=== PATIENT | male | born 1965 | race Caucasian/White ===

== ENCOUNTER 2017-04-01 06:12 | Observation (INO) ==
[2017-04-01 06:46] LABS: Basophils % 0.8 % (0.0-0.8); Eosinophils # 0.1 10*3/uL (0.0-0.87); Eosinophils % 2.7 % (0.00-10.9); Hematocrit 39.6 VOL% (42.0-52.0); Hemoglobin 13.9 GM/DL (14.0-18.0); Immature Granulocytes % 0.4 %; Immature Granulocytes Absolute 0.02 #; Lymphocytes # 2.5 10*3/uL (1.4-4.0); Lymphocytes % 47.3 % (21.2-54.2); Mean Corpuscular HGB Conc 35.1 GM/DL (32-36); Mean Corpuscular Hemoglobin 26 PG (27-34); Mean Corpuscular Volume 74.9 FL (87-102); Mean Platelet Volume 12.4 FL (9.6-12.0); Monocytes # 0.5 10*3/uL (0.11-0.8); Monocytes % 10.3 % (1.7-12.7); Neutrophils % 38.5 % (38.7-73.9); Platelet Count 184 T/CUMM (130-400); Red Blood Count 5.29 MC/CUMM (3.8-5.5); Red Cell Distribution Width 13.2 % (9.3-17.3); White Blood Count 5.2 T/CUMM (4-12)
[2017-04-01 07:12] LABS: Band Neutrophils 1 % (0-10); Eosinophils 2 % (0-10); Hypochromasia 1+; Lymphocytes 48 % (20-55); Segmented Neutrophils 37 % (50-85); Total Cells Counted 100
[2017-04-01 07:13] LABS: Microcytosis 1+
[2017-04-01 07:22] LABS: Alanine Aminotransferase 56 U/L (16-61); Alkaline Phosphatase 59 U/L (45-117); Apearance,Urine CLEAR (Clear); Aspartate Amino Transferase 29 U/L (0-37); Bilirubin,Urine Negative (Negative); Blood Urea Nitrogen 11 MG/DL (7-18); Blood, Urine Negative (Negative); Glucose 207 MG/DL (74-106); Glucose,Urine (UA) 50 mg/dL (Negative); Ketones,Urine Negative (Negative); Nitrite,Urine Negative (Negative); Potassium 3.3 MMOL/L (3.5-5.1); Protein,Urine 100 MG/DL; RBC,Urine 1 /HPF (0-4); Sodium 136 MMOL/L (136-145); Total Protein 7.8 G/DL (6.4-8.3); Troponin I Only < 0.015 NG/ML (0.00-0.045); Urine Color Straw (Yellow); Urine Urobilinogen < 2.0 EU/DL (0.2-1.0); WBC,Urine <1 /HPF (0-6)
--- NOTE | 2017-04-01 07:26 | Ultrasound Report ---
Exam: US abdomen limited Date:04/01/2017 6:33 AM Comparison: None Indication: Abdominal pain Findings: IMPORTANT MEASUREMENTS Liver Length: Liver is normal in size. 20.1 cm Focal fatty sparing also present Gallbladder Wall Thickness: Cholelithiasis is present with stones 3.1 mm CBD: 6 mm Pancreas: Visualized portion of pancreas is unremarkable. Right kidney: No hydronephrosis perinephric fluid collections or focal mass present.Length: 11.5 cm cm Width: 4.5 cm cm AP: 4.2 cm cm Impression: Cholelithiasis with a single stone and posterior sonographic Dodson sign without pericholecystic fluid The Ultrasound images were captured and stored. PROCEDURE INTERPRETED AT [facility] DEPARTMENT OF RADIOLOGY Final Report Signed by: Dr. Alexys Warren
[2017-04-01] MEDS ORDERED: ONDANSETRON 4 MG/2 ML VIAL ONE (07:53)
[2017-04-01] MEDS ORDERED: HYDROmorphone 2 MG/1 ML VIAL ONE (07:54)
[2017-04-01] MEDS ORDERED: HYDROmorphone 2 MG/1 ML VIAL IV STA (08:04)
[2017-04-01] MEDS ORDERED: ONDANSETRON 4 MG/2 ML VIAL IV STA (08:05)
--- NOTE | 2017-04-01 08:11 | Emergency Department Note ---
Geoffrey Pires Emily, am scribing for, and in the presence of, Cristobal Arora MD 06:36. Maite Pires Phillip K, MD, personally performed the services described in this documentation, ascribed by Jessenia Hale in my presence, and it is both accurate and complete . Arrival - Arrival Chief Complaint: Chest Pain Stated Complaint: severe upper stomach. chest area ED Nursing Triage Note: C/C nauseated, right sided chest pain that radiates into back, diaphoretic started this morning about 4am. Mode of Arrival: Ambulatory Limitations: No Limitations Source: Patient Time Seen by Provider: 04/01/17 06:25 - History of Present Illness HPI Narrative: Pt is a 51 y/o male who came to ED with c/o abdomen pain that radiates to back that started at 4am this this mornning. Pt has associated sxs of nausea and diaphoresis, but denies vomiting or fever. Pt reports 3-4 months ago same sxs, in which saw provider then and was told next time checking gallbladder. Pt's last bm was nml yesterday. Pt denies smoking tobacco, ETOH or hx of ulcers. FMHx of sister had gallbladder issues. PMHx of NIDDM, HTN. Onset (ago): hour(s) Consistency: constant Severity: mild, moderate Severity scale (1-10): 4 Quality: sharp Allergies/Adverse Reactions: Allergies Allergy/AdvReac Type Severity Reaction Status Date / Time No Known Allergies Allergy Verified 04/01/17 06:20 Home Medications: Home Medications Medication Instructions Recorded Confirmed Type Celecoxib [Celecoxib] 1 mg PO DAILY 01/21/15 04/01/17 History Escitalopram [Lexapro] 10 mg PO DAILY 01/21/15 04/01/17 History Losartan/Hydrochlorothiazide 1 mg PO DAILY 01/21/15 04/01/17 History [Losartan-Hctz 100-25 mg Tab] Omeprazole [Omeprazole] 1 tablet PO DAILY 01/21/15 04/01/17 History Saxagliptin HCl/Metformin HCl 1 tablet PO DAILY W/BREAKFAST 01/21/15 04/01/17 History [Kombiglyze Xr 5-1,000 mg Tab] Review of System - Review of System 12 point system: reviewed and no additional remarkable complaints except as stated - Review of System Constitutional: Present: diaphoresis. Absent: chills, fever Respiratory: Absent: respiratory distress Cardiovascular: Absent: chest pain Gastrointestinal: Present: abdominal pain (upper), nausea. Absent: vomiting, diarrhea, constipation Musculoskeletal: Absent: arm pain, neck pain Skin: Absent: rash Neurological: Absent: headache Medical,Surgical,& Family Hx - Medical History Cardio: History of: Hypertension Endocrine: History of: Diabetes Mellitus (NIDDM) Gastrointestinal: History of: GERD - Surgical History Surgical History: noncontributory - Family History Family History: noncontributory - Social History Smoking Status: Never smoker Frequency of Alcohol Use: None Type of Drug Use: None Marital Status: Lives With:: Spouse Functional capacity: independent ambulation Exam Vital Signs: Vital Signs Temperature 97 F L 04/01/17 06:15 Pulse Rate 64 04/01/17 06:15 Respiratory Rate 12 04/01/17 06:39 Blood Pressure 192/92 04/01/17 06:15 O2 Sat by Pulse Oximetry 99 04/01/17 06:15 - General General appearance: alert, in no apparent distress - Head Head exam: Present: atraumatic, normocephalic - Eye Eye exam: Present: PERRL, EOMI - ENT ENT exam: Present: mucous membranes moist. Absent: mucous membranes dry - Neck Neck exam: Present: full ROM, trachea midline - Chest Chest inspection: Present: symmetric chest wall rise. Absent: tenderness - Respiratory Respiratory exam: Present: normal lung sounds bilaterally. Absent: respiratory distress - Cardiovascular Cardiovascular exam: Present: regular rate, normal rhythm, normal heart sounds - Abdominal Exam Abdominal exam: Present: soft, tenderness (RUQ and upper, mid upper epigastric area), rebound. Absent: distention, guarding - Extremities Exam Extremities exam: Present: full ROM. Absent: tenderness, pedal edema - Neurological Exam Neurological exam: Present: alert, oriented X3, CN II-XII intact. Absent: motor sensory deficit - Psychiatric Psychiatric exam: Present: normal affect, normal mood - Skin Skin exam: Present: warm, dry Course Course Narrative: Patient discussed with Dr. Gipson. Results - Labs CBC & BMP: 04/01/17 06:26 04/01/17 06:26 Lab Results: I have reviewed the patients labs Labs: Laboratory Tests 04/01/17 06:26 WBC 5.2 RBC 5.29 Hgb 13.9 L Hct 39.6 L MCV 74.9 L MCH 26 L Plt Count 184 MPV 12.4 H Neut % (Auto) 38.5 L Laboratory Tests 04/01/17 04/01/17 06:26 06:26 Total Counted 100 Segmented Neutrophils 37 L Band Neutrophils 1 Lymphocytes 48 Monocytes 11 Eosinophils 2 Basophils 1.0 H Hypochromasia 1+ Microcytosis 1+ Morphology Comment Sodium 136 Potassium 3.3 L Chloride 99 Carbon Dioxide 29 Anion Gap 11.3 BUN 11 Creatinine 1.00 GFR Calculation 117 BUN/Creatinine Ratio 11.00 Glucose 207 H Calculated Osmolality 276.0 Calcium 9.0 Total Bilirubin 0.60 AST 29 ALT 56 Alkaline Phosphatase 59 Troponin I < 0.015 Total Protein 7.8 Albumin 4.0 Globulin 3.8 H Albumin/Globulin Ratio 1.0 L Lipase 232.0 Laboratory Tests 04/01/17 04/01/17 06:26 06:26 Sodium 136 Potassium 3.3 L Chloride 99 Carbon Dioxide 29 BUN 11 Creatinine 1.00 GFR Calculation 117 Glucose 207 H AST 29 ALT 56 Troponin I < 0.015 Globulin 3.8 H Albumin/Globulin Ratio 1.0 L Lipase 232.0 Urine Color Straw Urine Appearance Clear Urine pH 7.0 Ur Specific [place] 1.010 Urine Protein 100 Urine Glucose (UA) 50 Urine Blood Negative Urine Nitrate Negative Urine Urobilinogen < 2.0 H Urine RBC 1 Urine WBC <1 - EKG EKG results: interpreted by ERMD, sinus rhythm (Nonspecific ST-T changes) - Diagnostic Findings Procedure: Ultrasound: report reviewed by me (Abdomen: Cholelithiasis with a single stone and posterior sonographic Dodson sign without pericholecystic fluid.) Disposition Clinical Impression: Cholelithiasis and cholecystitis without obstruction Case discussed with: patient Disposition: Still a Patient Condition: Stable Additional Instructions: Admit to Dr. Gipson.
--- NOTE | 2017-04-01 09:01 | General Surg History&Physical ---
Assessment and Plan - Time spent with patient Time spent with patient: Greater than 30 minutes (1) Cholelithiasis and cholecystitis without obstruction Status: Acute Assessment and plan: He appears to have a severe attack of biliary colic which may be subsiding. He has normal liver function test. The symptoms have been intermittent for a while and now increasing in severity. Ideally he needs a laparoscopic cholecystectomy and this was discussed in detail with the patient. Patient is also relating some shortness of breath with exertion that is unrelated to his pain. He has been evaluated in the past by cardiology but I do not have these records. 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 Current Visit: Yes (2) Abnormal EKG Status: Acute Assessment and plan: This suggests the possibility of anterior lateral ischemia. He has been seen by cardiology in the past. We will consult cardiology and check cardiac enzymes. Current Visit: Yes History of Present Illness Chief complaint: Gallbladder History of present illness: Mr. Brand is a 51 year old male Who for several months has had intermittent right upper quadrant pain sometimes severe which would last for a few hours. He had a severe attack of pain early this morning that woke him up and this pain is severe in his right upper quadrant radiating like a band around his right side to just beneath the shoulder blade. This feels better since he got pain medicine. This was accompanied by nausea and vomiting. It was made worse with food. He feels better if he lays still. He is currently pain-free. He has not had fever or chills or jaundice that he is aware of. He had an ultrasound showing gallstones and a normal size common bile duct. Home Medications Medication Instructions Recorded Confirmed Type Celecoxib [Celecoxib] 1 mg PO DAILY 01/21/15 04/01/17 History Escitalopram [Lexapro] 10 mg PO DAILY 01/21/15 04/01/17 History Losartan/Hydrochlorothiazide 1 mg PO DAILY 01/21/15 04/01/17 History [Losartan-Hctz 100-25 mg Tab] Omeprazole [Omeprazole] 1 tablet PO DAILY 01/21/15 04/01/17 History Saxagliptin HCl/Metformin HCl 1 tablet PO DAILY W/BREAKFAST 01/21/15 04/01/17 History [Kombiglyze Xr 5-1,000 mg Tab] Allergies Allergy/AdvReac Type Severity Reaction Status Date / Time No Known Allergies Allergy Verified 04/01/17 06:20 Medical,Surgical,& Family Hx - Medical History Cardio: History of: Hypertension Endocrine: History of: Diabetes Mellitus (NIDDM) Gastrointestinal: History of: GERD - Social History Smoking Status: Never smoker Frequency of Alcohol Use: None Type of Drug Use: None Exam - Constitutional Vitals: Period Temp Pulse Resp BP Sys/Edwards Pulse Ox Last 24 Hr 97 F-97 F 61-69 12-18 173-229/92-129 95-99 General appearance: no acute distress, over weight - Head Head exam: Present: normocephalic - Eye Eye exam: Absent: scleral icterus - ENT Mouth exam: Present: normal voice - Respiratory Respiratory exam: Present: clear to auscultation bilaterally. Absent: accessory muscle use - Cardiovascular Cardiovascular exam: Present: RRR - GI/Abdominal GI/Abdominal exam: Present: normal bowel sounds, soft. Absent: distended, guarding, mass, Dodson's sign, tenderness, rebound - Extremities Exam Extremities exam: Absent: edema - Back Exam Back exam: Absent: CVA tenderness (L), CVA tenderness (R) - Neurological Exam Neurological exam: Present: alert, oriented X3. Absent: motor sensory deficit Speech: Present: normal - Skin Skin exam: Present: normal color - Constitutional Constitutional: Absent: anorexia, chills, fever(s), weight loss - EENT Nose, mouth and throat: Absent: hoarseness - Cardiovascular Cardiovascular: Present: dyspnea on exertion. Absent: chest pain at rest, chest pain with activity, dyspnea - Respiratory Respiratory: Present: dyspnea on exertion. Absent: dyspnea, hemoptysis - Gastrointestinal Gastrointestinal: Present: abdominal pain, bloating, nausea, vomiting. Absent: cramping, diarrhea, hematemesis, hematochezia, jaundice - Genitourinary Genitourinary: Absent: dysuria, hematuria - Neurological Neurological: Absent: focal weakness, syncope - Endocrine Endocrine: Absent: polyuria Hematologic/Lymphatic: Absent: easy bleeding, easy bruising Results - Labs CBC & BMP: 04/01/17 06:26 04/01/17 06:26 Lab Results: I have reviewed the past 24 hour labs - Diagnostic Findings Procedure: Ultrasound: report reviewed by me
[2017-04-01] MEDS ORDERED: MORPHINE 2 MG/1 ML SYRINGE IV PRN (09:04)
[2017-04-01] MEDS ORDERED: ACETAMINOPHEN 325 MG TABLET PO PRN (09:04)
[2017-04-01] MEDS ORDERED: ONDANSETRON 4 MG/2 ML VIAL IV PRN (09:04)
[2017-04-01] MEDS: PIPERACILLIN/TAZOBACTAM 3,375 MG in SODIUM CHLORIDE 0.9% 100 ML IV SCH ×2 (11:11→17:06)
[2017-04-01] MEDS: SODIUM CHLORIDE 0.45% 1,000 ML IV SCH (11:11)
[2017-04-01] MEDS ORDERED: POTASSIUM CHLORIDE 20 MEQ TABLET PO ONE (16:58)
[2017-04-01] MEDS: ASPIRIN EC 81 MG TABLET PO SCH (17:06)
--- NOTE | 2017-04-01 20:16 | Cardiology Consult Note ---
Cedric Pires April RN, am scribing for, and in the presence of, Ric Adrian MD 20:13. Assessment and Plan - Time spent with patient Time spent with patient: Greater than 30 minutes (Due to assessment, planning, documentation, medication review) (1) Abnormal EKG Status: Acute Assessment and plan: Initial assessment and plan April 01, 2017: Abnormal EKG raised the question of some underlying ischemia --he does have some abdominal pain which could be an anginal equivalent but it could be gallbladder related It is been years since she has had a stress test Plan/records: We will check EKG every morning 3 to see if changes Check magnesium Replete potassium. Consider adding a low-dose beta-cullen at some point Treadmill/Cardiolite in a.m. Referral to Dr. Quintanilla regarding possible sleep apnea-patient approves being referred, consider evaluation for treatment if we think he has it Aspirin 81 mg daily If cardiac workup was negative he remains stable he can proceed with his gallbladder surgery as early as Thursday Thank you for allowing me to participate in this patient's care Current Visit: Yes (2) Hypertension Status: Chronic Current Visit: Yes (3) Cholelithiasis and cholecystitis without obstruction Status: Acute Current Visit: Yes History of Present Illness - Data of Consult Patient: known to practice within the last 3 years Consult date: 04/01/17 Requesting Physician: Marco A Gipson III. - Consult Narrative Reason for consult: Abnormal EKG History of present illness: Utilization Review Rn: Dr. Pagan (last seen in 2014) Mr. Brand is a 51 year old male with a history of hypertension, NIDDM, vertigo, and depression. He denies ever having had a heart catheterization. He had a stress test in 2012 that was read as probably normal and did not suggest major epicardial coronary artery ischemia being present. Surgical history includes 3 surgeries to the left knee. Family history is positive for mother with heart disease and hypertension, father with diabetes heart disease and stroke, brothers with prostate cancer, and sister with diabetes. He reports he is a lifetime non-smoker. Mr. Brand is in to the emergency department this morning with abdominal pain and nausea. Abdominal ultrasound indicated cholelithiasis with a single stone. Dr. Brandan MILLIGAN admitted the patient with anticipation of possible laparoscopic cholecystectomy. We have been consulted to see patient because of abnormal EKG. Mr. Brand denies having had any chest pain or shortness of breath. Troponin has been negative 1. Potassium is low at 3.3. Blood pressure has been elevated since presentation, this morning it is 154/90. CC: Marco A Gipson III., - Home Medications and Allergies Home Medications: Home Medications Medication Instructions Recorded Confirmed Type Escitalopram [Lexapro] 20 mg PO DAILY 01/21/15 04/01/17 History Amlodipine/Valsartan/Hcthiazid 1 tablet PO DAILY 04/01/17 04/01/17 History [Hrznm-Foipj-Auol 5-160-12.5 mg] Glimepiride [Glimepiride] 2 mg PO DAILY 04/01/17 04/01/17 History Sitagliptin Phos/Metformin HCl 1 tablet PO DAILY 04/01/17 04/01/17 History [Janumet Xr 100-1,000 mg Tablet] Allergies/Adverse Reactions: Allergies Allergy/AdvReac Type Severity Reaction Status Date / Time No Known Allergies Allergy Verified 04/01/17 06:20 - Constitutional Constitutional: Present: as per HPI - EENT Eyes: Present: requires corrective lense Ears: Absent: decreased hearing Nose, mouth and throat: Absent: epistaxis, headache(s), neck pain - Cardiovascular Cardiovascular: Present: diaphoresis. Absent: chest pain at rest, chest pain with activity, dyspnea, dyspnea on exertion, edema, radiating jaw, neck or arm pain, lightheadedness, orthopnea, palpitations - Respiratory Respiratory: Present: cough. Absent: dyspnea, hemoptysis, dyspnea on exertion, wheezing - Gastrointestinal Gastrointestinal: Present: abdominal pain, nausea. Absent: constipation, diarrhea, hematemesis, hematochezia, melena, vomiting - Musculoskeletal Musculoskeletal: Present: back pain, limited range of motion, muscle weakness - Neurological Neurological: Present: abnormal gait, dizziness. Absent: abnormal speech, confusion, headache(s), syncope - Psychiatric Psychiatric: Absent: anxiety, confusion - Hematologic/Lymphatic Hematologic/Lymphatic: Absent: easy bleeding, easy bruising Medical,Surgical,& Family Hx - Medical History Cardio: History of: Hypertension Psychological: History of: Depression Endocrine: History of: Diabetes Mellitus (NIDDM) Gastrointestinal: History of: GERD - Surgical History Orthopedic Surgeries: Surgical HX of;: Orthopedic Surgery (Left knee 3) - Family History Family History: Reports;: Family Cancer (Brothers), Family Diabetes (Father, sister), Family Heart Disease (Father, mother), Family Hypertension (Mother), Family Stroke (Father) - Social History Smoking Status: Never smoker Have you smoked in the last 12 months: No Frequency of Alcohol Use: None Type of Drug Use: None Marital Status: Lives With:: Spouse Functional capacity: independent ambulation Physical Examination Vital Signs Temp Pulse Resp BP Pulse Ox 97 F L 64 18 192/92 99 04/01/17 06:15 04/01/17 06:15 04/01/17 06:15 04/01/17 06:15 04/01/17 06:15 General: Present: Appears Well, No Apparent Distress HEENT: Present: PERRL, Mucus Membranes Moist Neck: Present: Supple Neck, Midline Trachea, No Bruit Cardiac: Present: Regular Rhythm, Bradycardia Lungs: Present: Normal Breath Sounds, No Wheeze, Rales, Rhonchi Neuro: Absent: Resting Tremor, Essential Tremor Abdomen: Present: Soft, Active Bowel Sounds, Tender. Absent: Distended Skin: Absent: Rash, Suspicious Lesions Extremities: Present: No Edema, Normal Upper Extr. Pulses, Normal Lower Extr. Pulses Result/EKG - Labs CBC & BMP: 04/01/17 06:26 04/01/17 06:26 Lab Results: I have reviewed the past 24 hour labs Labs: Laboratory Results - last 24 hr 04/01/17 04/01/17 04/01/17 06:26 06:26 06:26 WBC 5.2 RBC 5.29 Hgb 13.9 L Hct 39.6 L MCV 74.9 L MCH 26 L MCHC 35.1 RDW 13.2 Plt Count 184 MPV 12.4 H Neut % (Auto) 38.5 L Lymph % (Auto) 47.3 [place] % (Auto) 10.3 Eos % (Auto) 2.7 Baso % (Auto) 0.8 Neut # (Auto) 2.0 Lymph # (Auto) 2.5 [place] # (Auto) 0.5 Eos # (Auto) 0.1 Baso # (Auto) 0.0 Total Counted 100 Immature Gran % 0.4 Nucleated RBC % 0.0 Immature Gran # 0.02 Segmented Neutrophils 37 L Band Neutrophils 1 Lymphocytes 48 Monocytes 11 Eosinophils 2 Basophils 1.0 H Nucleated RBCs # 0.00 Immature Plt Fraction 0.0 Hypochromasia 1+ Microcytosis 1+ Morphology Comment Sodium 136 Potassium 3.3 L Chloride 99 Carbon Dioxide 29 Anion Gap 11.3 BUN 11 Creatinine 1.00 GFR Calculation 117 BUN/Creatinine Ratio 11.00 Glucose 207 H POC Glucose Calculated Osmolality 276.0 Calcium 9.0 Total Bilirubin 0.60 AST 29 ALT 56 Alkaline Phosphatase 59 Troponin I < 0.015 Total Protein 7.8 Albumin 4.0 Globulin 3.8 H Albumin/Globulin Ratio 1.0 L Lipase 232.0 Urine Color Straw Urine Appearance Clear Urine pH 7.0 Ur Specific [place] 1.010 Urine Protein 100 Urine Glucose (UA) 50 Urine Ketones Negative Urine Blood Negative Urine Nitrate Negative Urine Bilirubin Negative Urine Urobilinogen < 2.0 H Urine Leukocytes Negative Urine RBC 1 Urine WBC <1 Ur Culture Indicated? Not indicated 04/01/17 10:53 WBC RBC Hgb Hct MCV MCH MCHC RDW Plt Count MPV Neut % (Auto) Lymph % (Auto) [place] % (Auto) Eos % (Auto) Baso % (Auto) Neut # (Auto) Lymph # (Auto) [place] # (Auto) Eos # (Auto) Baso # (Auto) Total Counted Immature Gran % Nucleated RBC % Immature Gran # Segmented Neutrophils Band Neutrophils Lymphocytes Monocytes Eosinophils Basophils Nucleated RBCs # Immature Plt Fraction Hypochromasia Microcytosis Morphology Comment Sodium Potassium Chloride Carbon Dioxide Anion Gap BUN Creatinine GFR Calculation BUN/Creatinine Ratio Glucose POC Glucose 266 H Calculated Osmolality Calcium Total Bilirubin AST ALT Alkaline Phosphatase Troponin I Total Protein Albumin Globulin Albumin/Globulin Ratio Lipase Urine Color Urine Appearance Urine pH Ur Specific [place] Urine Protein Urine Glucose (UA) Urine Ketones Urine Blood Urine Nitrate Urine Bilirubin Urine Urobilinogen Urine Leukocytes Urine RBC Urine WBC Ur Culture Indicated? - EKG EKG results: interpreted by me EKG shows: bradycardia, sinus rhythm I, Ric Adrian MD, personally performed the services described in this documentation, ascribed by Augustina Steele RN in my presence, and it is both accurate and complete .
[2017-04-02] MEDS: SODIUM CHLORIDE 0.45% 1,000 ML IV SCH ×4 (00:52→23:59)
[2017-04-02] MEDS: PIPERACILLIN/TAZOBACTAM 3,375 MG in SODIUM CHLORIDE 0.9% 100 ML IV SCH ×3 (01:07→17:43)
--- NOTE | 2017-04-02 06:45 | EKG Report ---
Stationary ECG Study 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
[2017-04-02 07:32] LABS: Basophils % 0.7 % (0.0-0.8); Eosinophils # 0.1 10*3/uL (0.0-0.87); Eosinophils % 1.6 % (0.00-10.9); Hematocrit 37.4 VOL% (42.0-52.0); Hemoglobin 12.7 GM/DL (14.0-18.0); Immature Granulocytes % 0.4 %; Immature Granulocytes Absolute 0.02 #; Lymphocytes # 1.5 10*3/uL (1.4-4.0); Lymphocytes % 32.9 % (21.2-54.2); Mean Corpuscular Hemoglobin 26 PG (27-34); Mean Corpuscular Volume 76.2 FL (87-102); Mean Platelet Volume 11.9 FL (9.6-12.0); Monocytes # 0.4 10*3/uL (0.11-0.8); Monocytes % 8.3 % (1.7-12.7); Neutrophils # 2.5 10*3/uL (1.4-7.4); Neutrophils % 56.1 % (38.7-73.9); Platelet Count 160 T/CUMM (130-400); Red Blood Count 4.91 MC/CUMM (3.8-5.5); Red Cell Distribution Width 13.2 % (9.3-17.3); White Blood Count 4.5 T/CUMM (4-12)
[2017-04-02 08:10] LABS: Albumin 3.7 G/DL (3.4-5.0); Bilirubin,Total 0.8 MG/DL (0.2-1.0); Calcium 8.8 MG/DL (8.5-10.1); Osmolality,Calculated 277.7 MOS/KG (273-304); Potassium 3.8 MMOL/L (3.5-5.1)
[2017-04-02] MEDS: ENOXAPARIN 40 MG/0.4 ML SYRINGE SUBCUT SCH (08:19)
--- NOTE | 2017-04-02 08:53 | EKG Report ---
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
--- NOTE | 2017-04-02 09:02 | General Surgery Progress Note ---
Assessment and Plan (1) Cholelithiasis and cholecystitis without obstruction Status: Acute Assessment and plan: He appears to have a severe attack of biliary colic which may be subsiding. He has normal liver function test. The symptoms have been intermittent for a while and now increasing in severity. Ideally he needs a laparoscopic cholecystectomy and this was discussed in detail with the patient. Patient is also relating some shortness of breath with exertion that is unrelated to his pain. He has been evaluated in the past by cardiology but I do not have these records. He does not remember who his commercial technician is. 04/02: He looks and feels much better. His abdominal pain is largely subsided though he still has some discomfort in his right upper quadrant. Once he is okay from a cardiology standpoint we can look at laparoscopic cholecystectomy. The procedure and risks were outlined in detail and he wishes to proceed tomorrow if okay with cardiology. Current Visit: Yes (2) Abnormal EKG Status: Acute Assessment and plan: This suggests the possibility of anterior lateral ischemia. He has been seen by cardiology in the past. We will consult cardiology and check cardiac enzymes. Current Visit: Yes Subjective Patient reports: Present: feels better, pain is less. Absent: nausea, vomiting , fever Exam - Constitutional Vitals: Period Temp Pulse Resp BP Sys/Edwards Pulse Ox Last 24 Hr 97.6 F-98.9 F 61-82 18-18 108-155/53-93 98-100 General appearance: no acute distress - Head Head exam: Present: normocephalic - Eye Eye exam: Absent: scleral icterus - GI/Abdominal GI/Abdominal exam: Present: soft. Absent: distended, tenderness, rebound Results - Labs CBC & BMP: 04/02/17 07:04 04/02/17 07:04 Lab Results: I have reviewed the past 24 hour labs
[2017-04-02] MEDS: ASPIRIN EC 81 MG TABLET PO SCH (09:27)
[2017-04-02] MEDS: PANTOPRAZOLE 40 MG TABLET PO SCH (09:27)
--- NOTE | 2017-04-02 10:00 | Event Note ---
Patient for cholecystectomy had an abnormal preoperative EKG and cardiology was consulted for cardiac risk assessment. Patient underwent nuclear stress testing without difficulty. On prestress EKG, he had some inferolateral T-wave inversion. He had some upsloping anterior ST depression during exercise which improved with rest. No other significant EKG changes noted. Target heart rate achieved in stage III of Kyle protocol. Post stress EKG, lateral T waves have returned to normal. Blood pressure responded appropriately. He experienced no chest pain, heaviness, or tightness. No dizziness, lightheadedness, or syncope. Patient had a nuclear medicine for final scan. Dr. Adrian to read , interpret, and advised.
--- NOTE | 2017-04-02 10:00 | Cardiology Progress Note ---
Assessment and Plan - Time spent with patient Time spent with patient: Less than 30 minutes (1) Abnormal EKG Status: Acute Assessment and plan: See plan of care listed below. Current Visit: Yes (2) Pre-operative cardiovascular examination Status: Acute Assessment and plan: See plan of care listed below. Current Visit: Yes (3) Hypertension Status: Chronic Assessment and plan: See plan of care listed below. Current Visit: Yes (4) Cholelithiasis and cholecystitis without obstruction Status: Acute Assessment and plan: See plan of care listed below. Current Visit: Yes Cardiology - PN: Subj Interval history: [employer] Supervisor: Dr. Pagan (last seen in 2014) SUMMARY: Mr. Brand is a 51 year old male who presented to the ER with abdominal pain and nausea. Abdominal ultrasound indicated cholelithiasis with a single stone and he was admitted to Dr. Brandan MILLIGAN with anticipation of possible laparoscopic cholecystectomy. Cardiology was consulted for preoperative cardiac risk assessment due to an abnormal EKG. He ruled out for NC and was scheduled for nuclear stress testing on 04/02/2017. 2016: Mr. Brand denies any complaints at the time of stress test today. He reports he did experience some abdominal pain early this morning but is currently pain-free. He denies any chest pain or shortness of breath. Potassium up to 3.8 today. Magnesium 1.8. H&H stable at 12.7 & 37.4. Nuclear stress test results pending. Dr. Adrian to follow with further plan and addendum. ASSESSMENT/PLAN: 1. ABNORMAL EKG - Raised the question of some underlying ischemia --he does have some abdominal pain which could be an anginal equivalent but it could be gallbladder related and it has been years since he has had a stress test. We will replete his potassium and magnesium. He has been started on a daily baby aspirin. 2. PREOPERATIVE CARDIAC RISK ASSESSMENT - He underwent nuclear stress testing this morning. If negative, he would be able to proceed with his gallbladder surgery as early as Thursday. We have referred him to sleep medicine regarding possible sleep apnea. 3. HYPERTENSION - Will resume his home blood pressure medication. Bp has been moderately well controlled with occasional elevated readings since admission. BP elevated during stress test this morning. 4. CHOLELITHIASIS AND CHOLECYSTITIS S OBSTRUCTION - General surgery is following and plans to proceed with surgery if cardiac workup is negative. Exam (Progress Note) - Constitutional Vitals: Period Temp Pulse Resp BP Sys/Edwards Pulse Ox Last 24 Hr 97.6 F-98.9 F 61-82 18-18 108-155/53-86 98-100 Exam: General appearance: Appears well. Pleasant and cooperative. Overweight, no acute distress. Head exam: Present: normal inspection, normocephalic, atraumatic. Absent: hematoma, laceration Eye exam: Present: EOMI. Absent: conjunctival injection, nystagmus, periorbital swelling, scleral icterus, laceration to eyelids, jaundice Pupils: Present: PERRL. Absent: constricted, dilated, fixed, irregular, unequal ENT exam: Present: normal exam, normal external ear exam, mucous membranes moist. Neck exam: Present: normal inspection, midline trachea. Absent: masses, lymphadenopathy, tenderness, thyromegaly, carotid bruit Respiratory exam: Present: clear to auscultation bilaterally. Absent: accessory muscle use, chest wall tenderness, rales, rhonchi, wheezing. Cardiovascular exam: Present: regular rate and rhythm. Absent: gallop, JVD, rubs, murmur GI/Abdominal exam: Present: normal bowel sounds, soft. Absent: distended, firm , hernia, mass. Extremities exam: Present: Normal Gait, No Clubbing, No Cyanosis, Upper Extr. Pulses 2+, Lower Extr. Pulses 2+, No edema. Capillary refill less than 3 seconds. Musculoskeletal: Present: No Fluid Collection, No Pain, Normal Range of Motion Back exam: Present: normal inspection. Absent: muscle spasm, vertebral tenderness Neurological exam: Present: awake, alert, oriented X3, Moves all extremities well without hemiparesis or paralysis. Grossly intact without resting or essential tremor Psychiatric exam: Present: normal affect, normal mood Skin exam: Present: normal color, warm, dry, intact. Absent: cyanosis, diaphoretic, rash, urticaria Result/EKG - Labs CBC & BMP: 04/02/17 07:04 04/02/17 07:04 Lab Results: I have reviewed the past 24 hour labs Labs: Laboratory Results - last 24 hr 04/01/17 04/01/17 04/02/17 10:53 18:06 00:28 WBC RBC Hgb Hct MCV MCH MCHC RDW Plt Count MPV Neut % (Auto) Lymph % (Auto) [place] % (Auto) Eos % (Auto) Baso % (Auto) Neut # (Auto) Lymph # (Auto) [place] # (Auto) Eos # (Auto) Baso # (Auto) Immature Gran % Nucleated RBC % Immature Gran # Nucleated RBCs # Immature Plt Fraction Sodium Potassium Chloride Carbon Dioxide Anion Gap BUN Creatinine GFR Calculation BUN/Creatinine Ratio Glucose POC Glucose 266 H 222 H 176 H Calculated Osmolality Calcium Magnesium Total Bilirubin AST ALT Alkaline Phosphatase Total Protein Albumin Globulin Albumin/Globulin Ratio 04/02/17 04/02/17 04/02/17 07:04 07:04 07:04 WBC 4.5 RBC 4.91 Hgb 12.7 L Hct 37.4 L MCV 76.2 L MCH 26 L MCHC 34.0 RDW 13.2 Plt Count 160 MPV 11.9 Neut % (Auto) 56.1 Lymph % (Auto) 32.9 Fayette % (Auto) 8.3 Eos % (Auto) 1.6 Baso % (Auto) 0.7 Neut # (Auto) 2.5 Lymph # (Auto) 1.5 [place] # (Auto) 0.4 Eos # (Auto) 0.1 Baso # (Auto) 0.0 Immature Gran % 0.4 Nucleated RBC % 0.0 Immature Gran # 0.02 Nucleated RBCs # 0.00 Immature Plt Fraction 0.0 Sodium 138 Potassium 3.8 Chloride 102 Carbon Dioxide 32 Anion Gap 7.8 BUN 11 Creatinine 1.10 GFR Calculation 103 BUN/Creatinine Ratio 10.00 Glucose 165 H POC Glucose Calculated Osmolality 277.7 Calcium 8.8 Magnesium 1.8 Total Bilirubin 0.80 AST 26 ALT 53 Alkaline Phosphatase 50 Total Protein 7.0 Albumin 3.7 Globulin 3.3 Albumin/Globulin Ratio 1.1 - EKG EKG results: interpreted by me, sinus rhythm
[2017-04-02] MEDS ORDERED: VALSARTAN 160 MG TABLET PO SCH (10:30)
[2017-04-02] MEDS: amLODIPine 5 MG TABLET PO SCH (10:33)
[2017-04-02] MEDS: hydroCHLOROthiazide 12.5 MG CAPSULE PO SCH (10:33)
[2017-04-02] MEDS: VALSARTAN 160 MG TABLET PO SCH (10:33)
--- NOTE | 2017-04-02 12:29 | Sleep Medicine Consult ---
Assessment and Plan (1) Unspecified sleep apnea Status: Acute Assessment and plan: His symptoms are quite consistent with obstructive sleep apnea. If he is here tonight, we will proceed with home sleep testing. He does have [address] [place] [address] [employer] insurance and [facility] does not recognize HST evaluation but we will still evaluate him just to be aware for potential problems ajay-operatively. Thank you for this consult and the opportunity to participate in his care. Current Visit: Yes (2) Hypertension Status: Chronic Assessment and plan: The prevalence rate for obstructive sleep apnea patients with hypertension is 35 %. That rate can be as high as 80% in patients who require 4 or more medications for blood pressure control. Current Visit: Yes (3) Type 2 diabetes mellitus Status: Acute Assessment and plan: The prevalence rate for obstructive sleep apnea in patients with type 2 diabetes can be as high as 86%. Those patients with moderate to severe obstructive sleep apnea are at a greater risk for diabetic nephropathy and neuropathy. Compliance with CPAP therapy for these patients can lead to improvement in glycemic control and improvement in insulin sensitivity. Current Visit: Yes History of Present Illness Chief complaint: Sleep apnea History of present illness: Mr. Brand is a 51 year old male admitted with abdominal pain and found to have cholelithiasis. During the course of his evaluation, it was noted that he had an abnormal EKG. He was seen by Dr. Adrian who consulted me for sleep evaluation. The patient has a long history of loud snoring and abnormal breathing during sleep with witnessed apneas. He can awaken from sleep short of breath. He does have significant problems with daytime fatigue and sleepiness. He usually retires about 1 in the morning and awakens between 7 and 8. He then will nap during the day. He has an Pep sleepiness score of 14 and a stop bang score of 8. His past medical history is notable for hypertension and diabetes. He does not have a family history of sleep apnea. Home Medications Medication Instructions Recorded Confirmed Type Escitalopram [Lexapro] 20 mg PO DAILY 01/21/15 04/01/17 History Amlodipine/Valsartan/Hcthiazid 1 tablet PO DAILY 04/01/17 04/01/17 History [Jyfwz-Jmbge-Sgzg 5-160-12.5 mg] Glimepiride [Glimepiride] 2 mg PO DAILY 04/01/17 04/01/17 History Sitagliptin Phos/Metformin HCl 1 tablet PO DAILY 04/01/17 04/01/17 History [Janumet Xr 100-1,000 mg Tablet] Allergies Allergy/AdvReac Type Severity Reaction Status Date / Time No Known Allergies Allergy Verified 04/01/17 06:20 Review of systems: Notable for nocturia Exam (Pulmonay) H&P - Constitutional Vitals: Period Temp Pulse Resp BP Sys/Edwards Pulse Ox Last 24 Hr 97.4 F-98.8 F 61-81 18-18 108-155/53-87 98-100 Exam: He is alert and responsive in no acute distress. Pupils equal round reactive to light and accommodation. Extraocular movements intact. Oropharynx with a class IV Mallampati exam. Neck is supple without adenopathy or thyromegaly. No supraclavicular adenopathy is noted. Chest with symmetrical breath sounds without focal wheeze, rhonchi, or rales. Cardiac exam reveals a regular rhythm without murmur or gallop. Abdomen soft nontender without palpable hepatosplenomegaly or mass. Extremities are without clubbing, cyanosis, or edema. Neurologically, he is grossly intact. He moves all extremities with good strength. Medical,Surgical,& Family Hx - Medical History Cardio: History of: Hypertension Psychological: History of: Depression Endocrine: History of: Diabetes Mellitus (NIDDM) Gastrointestinal: History of: GERD - Surgical History Orthopedic Surgeries: Surgical HX of;: Orthopedic Surgery (Left knee 3) - Family History Family History: Reports;: Family Cancer (Brothers), Family Diabetes (Father, sister), Family Heart Disease (Father, mother), Family Hypertension (Mother), Family Stroke (Father) - Social History Smoking Status: Never smoker Frequency of Alcohol Use: None Type of Drug Use: None Results - Labs CBC & BMP: 04/02/17 07:04 04/02/17 07:04 Lab Results: I have reviewed the past 24 hour labs
--- NOTE | 2017-04-02 16:32 | Event Note ---
I discussed his case with Dr. sellers and with Dr. Quintanilla. Both feel he is an acceptable risk for surgery and we will proceed with laparoscopic cholecystectomy tomorrow. He has had some mild pain today and still has symptoms related to his gallbladder but this is better than on admission. He will continue to have problems until his gallbladder was removed. We discussed the risks of surgery including conversion to open procedure, injury to bile ducts, injury to intestine or bladder, or bile leaks, etc. he understands these risks and wishes to proceed
[2017-04-03] MEDS: SODIUM CHLORIDE 0.45% 1,000 ML IV SCH ×2 (01:38→19:57)
[2017-04-03] MEDS: PIPERACILLIN/TAZOBACTAM 3,375 MG in SODIUM CHLORIDE 0.9% 100 ML IV SCH ×3 (01:41→17:56)
[2017-04-03] MEDS: ENOXAPARIN 40 MG/0.4 ML SYRINGE SUBCUT SCH (03:13)
[2017-04-03] MEDS: ASPIRIN EC 81 MG TABLET PO SCH (08:17)
[2017-04-03] MEDS: PANTOPRAZOLE 40 MG TABLET PO SCH (08:18)
--- NOTE | 2017-04-03 08:34 | EKG Report ---
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
[2017-04-03] MEDS: hydroCHLOROthiazide 12.5 MG CAPSULE PO SCH (09:16)
[2017-04-03] MEDS: VALSARTAN 160 MG TABLET PO SCH (09:16)
[2017-04-03] MEDS: amLODIPine 5 MG TABLET PO SCH ×2 (09:16→19:58)
--- NOTE | 2017-04-03 09:42 | Nuclear Medicine Report ---
TREADMILL CARDIOLITE STUDY DATE: 03/31/2017 REFERRING PHYSICIAN: Dr. Adrian HISTORY: A 51-year-old man with abnormal EKG and some abdominal pain. He also has gallstones. Eval uate for evidence of ischemia prior to undergoing gallbladder surgery. STRESS SPECT CARDIOLITE STUDY WITH GATED: The patient was intravenously injected with 10 mCi of Tech netium Cardiolite. He then walked a short amount of time and then had his rest scan done. He then w alked on the treadmill, about 8 minutes, going to stage III. Peak heart rate is 146 beats per minute . At peak stress, he had no chest pain. On the post stress images, there was no increased lung uptake, cardiac size was normal, and RV uptake of thallium was normal. On cine images, there was normal, homogenous uptake of Cardiolite in all my ocardial segments. In the PERRY view, there is inferior thinning. In the EQUATORIAL GUINEAN view, there is inferosep hamida thinning. In the extreme EQUATORIAL GUINEAN view, there is inferior posterior thinning thought to be due to RV, extracardiac tissue, and diaphragmatic attenuation, respectively. On the delayed images, there was n ormal washout. The gated SPECT images revealed normal global systolic function. The overall ejectio n fraction was 55%. IMPRESSION: 1. NORMAL STRESS CORRELATED STUDY AT A MODERATELY HIGH WORKLOAD AND HEART RATE FOR AGE. THIS STUDY WILL GO AGAINST MAJOR EPICARDIAL ISCHEMIA BEING PRESENT. 2. THE GATED SPECT IMAGES WERE NORMAL. LEFT VENTRICULAR EJECTION FRACTION IS GREATER THAN 55%. 3. REGIONAL WALL MOTION ANALYSIS IS NORMAL. 4. NO PRIOR STUDY IS AVAILABLE FOR COMPARISON. ADDENDUM: Given the results of the study, it goes against major ischemia is being cause of his abnor mal baseline EKG. There could be LVH or repolarization abnormality finding. Whatever the case, from my standpoint his risk is low for proceeding with the planned cholecystectomy. It could be done whe never he and Dr. Gipson believe it should be done. I will follow along. His cardiac risk of noncar diac surgery is low, probably less than 2% chance of mild arrhythmia or heart failure. It is not zer o, but it is except to be low. He may proceed. Procedure performed and interpreted at [facility] Department of Radiology. CC: Alexys Gipson III, MD [facility]
[2017-04-03] MEDS ORDERED: TISSUE ADHESIVE 1 EACH APPLICATOR TOP ONE (10:06)
[2017-04-03] MEDS ORDERED: BUPIVACAINE MPF 0.25% /EPI 30 ML VIAL ONE (10:06)
[2017-04-03] MEDS ORDERED: LIDOCAINE 1%/EPI INJ 20 ML VIAL ONE (10:06)
--- NOTE | 2017-04-03 11:37 | Operative Note ---
Date of procedure: 04/03/17 Pre-op diagnosis: Cholelithiasis with acute cholecystitis Post-op diagnosis: same Procedure: Laparoscopic cholecystectomy with intraoperative cholangiogram Findings and technique: After informed consent was obtained patient was brought the operating room and placed in supine position. After successful induction of general anesthesia the patient's abdomen was prepped and draped in usual sterile fashion. Local anesthesia was infiltrated and a small transverse incision made at the umbilicus were an open technique was used in the peritoneal cavity under direct vision. Camera was inserted and pneumoperitoneum was established. 5 mm ports were placed in the upper abdomen where the patient was noted to have adhesions between the transverse colon and omentum and the gallbladder and undersurface of the liver. Sharp dissection was used to take down these adhesions and exposed the edematous distended thickened gallbladder. The gallbladder was retracted upwards over the liver and the neck of the gallbladder dissected free from the surrounding structures and retracted downward and laterally. The peritoneum over the neck of the gallbladder was incised exposing the tapering neck of the gallbladder as it formed the proximal cystic duct and cystic artery as it branched over the medial neck of the gallbladder. Critical view of safety was achieved before incising any structures. The distal neck of the gallbladder was clipped and a small incision made at the proximal cystic duct were cholangiogram was obtained under fluoroscopy which appeared normal. The cystic duct was doubly clipped and divided right at the gallbladder neck and cystic artery branches doubly clipped and divided right on the gallbladder neck. Sharp dissection was used to remove the gallbladder from the liver bed with spot electrocautery on any potential bleeding points. Good hemostasis was maintained and the gallbladder removed through the umbilical port site in an Endo Catch bag. Right upper quadrant was liberally irrigated suctioned dry and inspected for bleeding and no bleeding or bile leakage noted. The ports removed and no bleeding noted from the port sites. Gas was evacuated from the abdomen and the fascial defect at the umbilicus closed with a running 0 Monocryl suture. The skin incisions were then closed with skin clips. He appeared to tolerate the procedure well. Anesthesia: AMRITA, local Surgeon / Physician: Marco A Gipson III. Estimated blood loss: other (20 mL) Specimens: other (Gallbladder) Condition: stable Disposition: PACU Results - Labs CBC & BMP: 04/02/17 07:04 04/02/17 07:04 Discharge Plan - Discharge Medications No Action Escitalopram [Lexapro] 20 mg PO DAILY Glimepiride [Glimepiride] 2 mg PO DAILY Amlodipine/Valsartan/Hcthiazid [Svsba-Qubff-Dqka 5-160-12.5 mg] 1 tablet PO DAILY Sitagliptin Phos/Metformin HCl [Janumet Xr 100-1,000 mg Tablet] 1 tablet PO DAILY - Follow Up or Referral Follow Up: Marco A Gipson III., MD [Physician] - 04/09/17 3:00 pm - Forms/Instructions
--- NOTE | 2017-04-03 12:10 | Discharge Summary ---
Hospital Course - Hospital Course Hospital Course: Patient is a 51-year-old male admitted biliary colic and suspected cholecystitis associated with cholelithiasis. He did have an abnormal EKG and cardiology was consulted to rule out any cardiac component and for preoperative evaluation. He was deemed an appropriate candidate for surgery and underwent laparoscopic cholecystectomy with intraoperative cholangiogram with Dr. Gipson on 04/03/2017. He underwent stress test which revealed no evidence of ischemia. Consultation for sleep apnea was also obtained with Dr. Quintanilla. Postoperatively Diagnosis - Discharge Diagnosis (1) Abnormal EKG Status: Acute (2) Cholelithiasis and cholecystitis without obstruction Status: Acute (3) Unspecified sleep apnea Status: Acute Specialty Discharge - Follow Up or Referrals Follow up with: Marco A Gipson III., MD [Physician] - 04/09/17 3:00 pm Discharge Plan - Discharge Data Disposition: Disch To Home/Self Care Condition at Discharge: Stable Discharge Diet: diabetic diet Activity: other (No lifting greater than 10 pounds) Hygiene: may shower (Surgeon second day after surgery) Driving: not until seen by doctor Contact your physician if you experience:: fever over 101, Redness or swelling, Nausea/Vomiting, Bleeding, pain uncontrolled by pain medications Wound / Dressing Care Instructions: Keep surgical incisions clean, dry and covered. Avoid excessive perspiration. Do not soak or submerge wounds. Pat was dry. - Discharge Medications New HYDROcodone/ACETAMIN 7.5-325 [[place] 7.5-325] 1 tablet PO Q4H PRN #30 tablet PRN Reason: Pain Moderate To Severe (4-10) Continue Escitalopram [Lexapro] 20 mg PO DAILY Glimepiride 2 mg PO DAILY Amlodipine/Valsartan/Hcthiazid [Yfefq-Mgyxd-Huuf 5-160-12.5 mg] 1 tablet PO DAILY Sitagliptin Phos/Metformin HCl [Janumet Xr 100-1,000 mg Tablet] 1 tablet PO DAILY - Follow Up or Referral Follow Up: Marco A Gipson III., MD [Physician] - 04/09/17 3:00 pm Breann Quintanilla MD [Physician] - (F/u suspected sleep apnea) - Forms/Instructions Instructions: Laparoscopic Cholecystectomy (DC), Sleep Apnea Syndrome (DC) Additional Discharge Instructions: Follow-up with cardiology team per their instruction Exam - Constitutional Vitals: Period Temp Pulse Resp BP Sys/Edwards Pulse Ox Last 24 Hr 97.7 F-98.9 F 61-72 18-20 146-168/86-99 95-99 Discharge Results Procedures and tests throughout hospitalization: Pending Orders 04/03/17 [place] cholangiogram in surgery Routine 04/03/17 11:45 Hematocrit Q6H 04/03/17 17:45 Hematocrit Q6H 04/03/17 23:45 Hematocrit Q6H 04/04/17 05:45 Hematocrit Q6H - Imaging and Cardiology Cardiology Procedure: other (Stress test without evidence of ischemia) Procedure: Ultrasound: report reviewed by me (Abdominal ultrasound revealed cholelithiasis with ajay- cholecystic fluid) DS: Provider Date of admission: 04/01/17 09:04 Primary care physician: . No PCP Attending physician on admission: Marco A Gipson III., Consults: 04/01/17 09:06 Consult to Physician [CONS] Routine Comment: Abnormal EKG preop Consulting Provider: Cardiology - [facility] Consulting Provider Notified: Yes When should Consulting Provider be notified: Now Consult to Specialist Group: Cardiology When should Consulting Provider be notified: Now Person Notified: frances jelena Date Notified: 04/01/17 Time Notified: 11:05 04/01/17 12:18 Consult to Pastoral Services [CONS] Routine Comment: Pastoral Screen: Request Salvage Clerk Visit Pastoral Screen Source of Request: Patient 04/01/17 16:59 Consult to Sleep Center [CONS] Routine Reason for Sleep Center: Sleep Center Physician Consult Comment: eval for ANTOLIN Discharging clinician: Komal Vora PA-C
[2017-04-03] MEDS ORDERED: PROPOFOL 200 MG/20 ML VIAL IV ONE (12:15)
[2017-04-03] MEDS ORDERED: GLYCOPYRROLATE 0.4 MG/2 ML VIAL ONE (12:16)
[2017-04-03] MEDS ORDERED: ACETAMINOPHEN 1,000 MG/100 ML VIAL IV ONE (12:16)
[2017-04-03] MEDS ORDERED: MIDAZOLAM 2 MG/2 ML VIAL ONE (12:16)
[2017-04-03] MEDS ORDERED: LACTATED RINGERS 1,000 ML IV ONE (12:16)
[2017-04-03] MEDS ORDERED: NEOSTIGMINE 10 MG/10 ML VIAL ONE (12:16)
[2017-04-03] MEDS ORDERED: ROCURONIUM 100 MG/10 ML VIAL IV ONE (12:16)
[2017-04-03] MEDS ORDERED: ONDANSETRON 4 MG/2 ML VIAL ONE (12:16)
--- NOTE | 2017-04-03 12:46 | Sleep Medicine Progress Note ---
Assessment and Plan (1) Unspecified sleep apnea Status: Acute Assessment and plan: His symptoms are quite consistent with obstructive sleep apnea. Patient will be scheduled for outpatient polysomnography. Thank you for this consult and the opportunity to participate in his care. Current Visit: Yes (2) Hypertension Status: Chronic Current Visit: Yes (3) Type 2 diabetes mellitus Status: Acute Current Visit: Yes Sleep Medicine Subjective Interval history: Patient did have mild obstructive sleep apnea on home sleep testing. Diagnostic AHI was just over 5 and O2 desats were into the low 80s. I suspect that he has worse sleep apnea than this and this is an underestimation of sleep apnea severity. I base this clearly on his history and physical findings. We will set him up for outpatient diagnostic polysomnography. Thank you for the consult. Exam (Progress Note) - Constitutional Vitals: Period Temp Pulse Resp BP Sys/Edwards Pulse Ox Last 24 Hr 97 F-98.9 F 59-72 12-20 114-168/69-99 93-100 Results - Labs CBC & BMP: 04/02/17 07:04 04/02/17 07:04 Specialty Discharge - Follow Up or Referrals Follow up with: Marco A Gipson III., MD [Physician] - 04/09/17 3:00 pm Breann Quintanilla MD [Physician] - (F/u suspected sleep apnea)
--- NOTE | 2017-04-03 12:51 | Fluoroscopy Report ---
Exam: [place] cholangiogram in surgery Date: 04/03/2017 Indication: Cholecystectomy Comparison: Abdomen sonogram 04/01/2017 Findings: 21 seconds fluoroscopy time were provided to Dr. Gipson. 21.8 seconds fluoroscopy time. Approximately 10 cc of contrast. The exam reveals cannulization of the cystic duct with opacification of the CBD left and right biliary radicals unremarkable. The exam reveals normal emptying of the ampulla. No filling defects are present. Surgical instrumentation is present. Impression: 1. Normal intraoperative cholangiogram. PROCEDURE INTERPRETED AT [facility] DEPARTMENT OF RADIOLOGY Final Report Signed by: Dr. Alexys Warren
--- NOTE | 2017-04-03 12:51 | Anesthesia Post-Op ---
Anesthesia Post OP - Post Ansesthetic Evaluation Patient seen in post op: Yes Resp: within normal limits CV: within normal limits Mental: within normal limits Temp: within normal limits Mgda-Ew-Hognngkcp: within normal limits Nausea and Vomiting: within normal limits Pain: within normal limits
--- NOTE | 2017-04-03 13:33 | Cardiology Progress Note ---
Assessment and Plan - Time spent with patient Time spent with patient: Less than 30 minutes (1) Abnormal EKG Status: Acute Assessment and plan: See plan of care listed below. Current Visit: Yes (2) Pre-operative cardiovascular examination Status: Acute Assessment and plan: See plan of care listed below. Current Visit: Yes (3) Hypertension Status: Chronic Assessment and plan: See plan of care listed below. Current Visit: Yes (4) Cholelithiasis and cholecystitis without obstruction Status: Acute Assessment and plan: See plan of care listed below. Current Visit: Yes Cardiology - PN: Subj Interval history: Environmental Specialist: Dr. Pagan (last seen in 2014) SUMMARY: Mr. Brand is a 51 year old male who presented to the ER with abdominal pain and nausea. Abdominal ultrasound indicated cholelithiasis with a single stone and he was admitted to Dr. Brandan MILLIGAN with anticipation of possible laparoscopic cholecystectomy. Cardiology was consulted for preoperative cardiac risk assessment due to an abnormal EKG. He ruled out for [place] and had a negative cardiolite stress test on 04/02/17. 2016: Mr. Brand underwent laparoscopic cholecystectomy with intraoperative cholangiogram this morning. He is seen postoperatively in his room. He is feeling okay but is still a little groggy. He reports his abdomen is sore. He has no cardiac complaints at this time. Blood pressure is mildly elevated postoperatively, possibly due to discomfort. Will continue to monitor and adjust his medications if his blood pressure does not improve. ASSESSMENT/PLAN: 1. ABNORMAL EKG - Raised the question of some underlying ischemia --he does have some abdominal pain which could be an anginal equivalent but it could be gallbladder related and it has been years since he has had a stress test. He underwent Cardiolite stress test for preoperative cardiac risk assessment which was negative. His cardiac surgical risk was low, not 0, but probably less than 2% chance of [place], arrhythmia, or heart failure. It was felt he could safely proceed with the planned surgical procedure. Continue to replete his potassium and magnesium. He has been started on a daily baby aspirin. 2. PREOPERATIVE CARDIAC RISK ASSESSMENT -he had a negative cardiac stress test and was felt safe to proceed with surgery. Sleep medicine has seen him in consultation for possible sleep apnea. 3. HYPERTENSION -continue home blood pressure medication. Bp has been moderately well controlled with occasional elevated readings since admission. 4. CHOLELITHIASIS AND CHOLECYSTITIS S OBSTRUCTION -status post laparoscopic cholecystectomy with intraoperative cholangiogram by Dr. Brandan MILLIGAN this morning. Exam (Progress Note) - Constitutional Vitals: Period Temp Pulse Resp BP Sys/Edwards Pulse Ox Last 24 Hr 97 F-98.9 F 58-72 12-20 114-168/69-99 93-100 Exam: General appearance: Appears well. Pleasant and cooperative. Overweight, no acute distress. Head exam: Present: normal inspection, normocephalic, atraumatic. Absent: hematoma, laceration Eye exam: Present: EOMI. Absent: conjunctival injection, nystagmus, periorbital swelling, scleral icterus, laceration to eyelids, jaundice Pupils: Present: PERRL. Absent: constricted, dilated, fixed, irregular, unequal ENT exam: Present: normal exam, normal external ear exam, mucous membranes moist. Neck exam: Present: normal inspection, midline trachea. Absent: masses, lymphadenopathy, tenderness, thyromegaly, carotid bruit Respiratory exam: Present: clear to auscultation bilaterally. Absent: accessory muscle use, chest wall tenderness, rales, rhonchi, wheezing. Cardiovascular exam: Present: regular rate and rhythm. Absent: gallop, JVD, rubs, murmur GI/Abdominal exam: Present: soft, tender. Absent: distended, firm, hernia, mass. Extremities exam: Present: Normal Gait, No Clubbing, No Cyanosis, Upper Extr. Pulses 2+, Lower Extr. Pulses 2+, No edema. Capillary refill less than 3 seconds. Musculoskeletal: Present: No Fluid Collection, No Pain, Normal Range of Motion Back exam: Present: normal inspection. Absent: muscle spasm, vertebral tenderness Neurological exam: Present: awake, alert, oriented X3, Moves all extremities well without hemiparesis or paralysis. Grossly intact without resting or essential tremor Psychiatric exam: Present: normal affect, normal mood Skin exam: Present: normal color, warm, dry, intact. Absent: cyanosis, diaphoretic, rash, urticaria Result/EKG - Labs CBC & BMP: 04/03/17 13:00 04/02/17 07:04 Lab Results: I have reviewed the past 24 hour labs Labs: Laboratory Results - last 24 hr 04/03/17 13:00 Hct 39.1 L - EKG EKG results: interpreted by me, sinus rhythm Specialty Discharge - Follow Up or Referrals Follow up with: Marco A Gipson III., MD [Physician] - 04/09/17 3:00 pm Breann Quintanilla MD [Physician] - (F/u suspected sleep apnea)
[2017-04-03] MEDS ORDERED: BENZOCAINE/MENTHOL LOZENGE 18/BOX PO PRN (21:22)
[2017-04-03] MEDS ORDERED: ESCITALOPRAM 10 MG TABLET PO SCH (21:30)
[2017-04-04] MEDS: SODIUM CHLORIDE 0.45% 1,000 ML IV SCH ×2 (00:19→06:32)
[2017-04-04] MEDS: PIPERACILLIN/TAZOBACTAM 3,375 MG in SODIUM CHLORIDE 0.9% 100 ML IV SCH (01:21)
[2017-04-04] MEDS: ENOXAPARIN 40 MG/0.4 ML SYRINGE SUBCUT SCH (06:09)
[2017-04-04 07:50] VITALS: BP 163/68
--- NOTE | 2017-04-04 08:49 | Discharge Summary ---
Hospital Course - Hospital Course Hospital Course: Patient is a 51-year-old male admitted biliary colic and suspected cholecystitis associated with cholelithiasis. He did have an abnormal EKG and cardiology was consulted to rule out any cardiac component and for preoperative evaluation. He was deemed an appropriate candidate for surgery and underwent laparoscopic cholecystectomy with intraoperative cholangiogram with Dr. Gipson on 04/03/2017. He underwent stress test which revealed no evidence of ischemia. Consultation for sleep apnea was also obtained with Dr. Quintanilla. Postoperatively he did well following a routine laparoscopic cholecystectomy. He has no complaints morning of discharge. He has no abdominal pain and has stable vital signs and no fever. His hematocrit is stable Diagnosis - Discharge Diagnosis (1) Cholelithiasis and cholecystitis without obstruction Status: Acute (2) Abnormal EKG Status: Acute Specialty Discharge - Follow Up or Referrals Follow up with: Marco A Gipson III., MD [Physician] - 04/09/17 3:00 pm Breann Quintanilla MD [Physician] - (F/u suspected sleep apnea) Discharge Plan - Discharge Data Condition at Discharge: Stable Discharge Diet: advance to your usual diet Activity: resume usual activities as tolerated - Discharge Medications New HYDROcodone/ACETAMIN 7.5-325 [[place] 7.5-325] 1 tablet PO Q4H PRN #30 tablet PRN Reason: Pain Moderate To Severe (4-10) Continue Escitalopram [Lexapro] 20 mg PO DAILY Glimepiride 2 mg PO DAILY Amlodipine/Valsartan/Hcthiazid [Sewsm-Lywut-Tqxo 5-160-12.5 mg] 1 tablet PO DAILY Sitagliptin Phos/Metformin HCl [Janumet Xr 100-1,000 mg Tablet] 1 tablet PO DAILY - Follow Up or Referral Follow Up: Marco A Gipson III., MD [Physician] - 04/09/17 3:00 pm Breann Quintanilla MD [Physician] - (F/u suspected sleep apnea) - Forms/Instructions Instructions: Sleep Apnea Syndrome (DC), Laparoscopic Cholecystectomy (DC) Exam - Constitutional Vitals: Period Temp Pulse Resp BP Sys/Edwards Pulse Ox Last 24 Hr 96.7 F-98.5 F 57-82 12-20 114-167/67-96 92-100 Discharge Results Labs on day of discharge: Labs from last 24 hours 09/09/17 09/08/17 09/08/17 03:09 23:21 18:26 Hct 38.2 L 40.2 L 40.7 L 04/03/17 13:00 Hct 39.1 L DS: Provider Date of admission: 04/01/17 09:04 Primary care physician: . No PCP Attending physician on admission: Marco A Gipson III., Consults: 04/01/17 09:06 Consult to Physician [CONS] Routine Comment: Abnormal EKG preop Consulting Provider: Cardiology - [facility] Consulting Provider Notified: Yes When should Consulting Provider be notified: Now Consult to Specialist Group: Cardiology When should Consulting Provider be notified: Now Person Notified: frances bowles Date Notified: 04/01/17 Time Notified: 11:05 04/01/17 12:18 Consult to Pastoral Services [CONS] Routine Comment: Pastoral Screen: Request Book Canvasser Visit Pastoral Screen Source of Request: Patient 04/01/17 16:59 Consult to Sleep Center [CONS] Routine Reason for Sleep Center: Sleep Center Physician Consult Comment: eval for ANTOLIN Discharging clinician: Marco A Gipson III.,
--- NOTE | 2017-04-04 08:50 | Event Note ---
He feels well. He has no complaints and has stable vital signs. Has no abdominal complaints. His hematocrit is stable. I see no evidence of postoperative complication. Discharge him home with plans to follow-up in my office and also to follow-up with Dr. Quintanilla sleep apnea
--- NOTE | 2017-04-04 08:52 | EKG Report ---
Stationary ECG Study [facility] Test Date: 04/04/2017 8:52:57 AM Pat Name: VIKAS ANTUNEZ Department: Room: 325 Gender: M Legal Executive: KASSANDRA : 1965 Requested by: Mohan Young Order Number: [id number] Reading MD: HOWIE DOWNING Intervals [place] Rate: 69 P: 51 AR: 140 QRS: 55 QRSD: 89 T: 21 QT: 389 QTc: 408 Interpretive Statements SINUS RHYTHM MODERATE T-WAVE ABNORMALITY, CONSIDER ANTERIOR ISCHEMIA INTERPRETATION BASED ON A DEFAULT AGE OF 40 YEARS Electronically Signed On 04-04-17 12:34:11 CDT by HOWIE DOWNING [email or web address]
[2017-04-04] MEDS: amLODIPine 5 MG TABLET PO SCH (09:11)
[2017-04-04] MEDS: ASPIRIN EC 81 MG TABLET PO SCH (09:11)
[2017-04-04] MEDS: VALSARTAN 160 MG TABLET PO SCH (09:11)
[2017-04-04] MEDS: hydroCHLOROthiazide 12.5 MG CAPSULE PO SCH (09:11)
[2017-04-04] MEDS: PANTOPRAZOLE 40 MG TABLET PO SCH (09:12)
--- NOTE | 2017-04-04 15:02 | Cardiology Progress Note ---
Assessment and Plan (1) Abnormal EKG Status: Acute Assessment and plan: Initial assessment and plan April 01, 2017: Abnormal EKG raised the question of some underlying ischemia --he does have some abdominal pain which could be an anginal equivalent but it could be gallbladder related It is been years since she has had a stress test Plan/records: We will check EKG every morning 3 to see if changes Check magnesium Replete potassium. Consider adding a low-dose beta-cullen at some point Treadmill/Cardiolite in a.m. Referral to Dr. Quintanilla regarding possible sleep apnea-patient approves being referred, consider evaluation for treatment if we think he has it Aspirin 81 mg daily If cardiac workup was negative he remains stable he can proceed with his gallbladder surgery as early as Thursday Thank you for allowing me to participate in this patient's care 04/04/17: No coronary ischemia perioperatively Patient is better after his cholecystectomy I encouraged him to keep his appointment for evaluating his sleep apnea and treatment. It would help in many ways. He and his agree The patient only saw Dr. Lonnie Pagan for 4 years ago at a treadmill. He says he has not seen him formally as the patient. Patient requests following up with me. Okay with me for discharge. We will have her remain on aspirin 81 mg daily. He may stop if it bothers him. Follow-up with me in about 6 weeks or sooner if needed Thank you for allowing me to participate in this patient's care (2) Hypertension Status: Chronic (3) Cholelithiasis and cholecystitis without obstruction Status: Acute Cardiology - PN: Subj Interval history: No chest pain, shortness breath, or abdominal pain The patient only saw Dr. Lonnie Pagan for 4 years ago at a treadmill. He says he has not seen him formally as the patient. Patient requests following up with me. Exam (Progress Note) - Constitutional Vitals: Period Temp Pulse Resp BP Sys/Edwards Pulse Ox Last 24 Hr 96.7 F-98.5 F 60-82 14-20 129-167/68-96 95-99 Exam: HEENT: Pupils equal, reactive to light and accommodation Neck: NoJVD or bruit Lungs clear to auscultation Heart: Regular rhythm rate with normal S1 and S2. Apical S4 Abdomen: No hepatosplenomegaly Spine/extremities: No clubbing, cyanosis, or edema Neuro: Nonfocal Psych: No depression or anxiety Result/EKG - Labs CBC & BMP: 04/04/17 03:09 04/02/17 07:04 Labs: Laboratory Results - last 24 hr 04/03/17 04/03/17 04/04/17 18:26 23:21 03:09 Hct 40.7 L 40.2 L 38.2 L Specialty Discharge - Follow Up or Referrals Follow up with: Marco A Gipson III., MD [Physician] - 04/09/17 3:00 pm Ric Adrian MD [Physician] - (Call office on Thursday to schedule a 6 week follow up appointment) Breann Quintanilla MD [Physician] - (F/u suspected sleep apnea)
--- NOTE | 2017-04-06 12:22 | Pathology Report from [facility] ---
[facility] – [place] ACCESSION # : [id number] PATIENT NAME : Vikas Brand ORDERING DR : JAMES PILLAI III, MD CLINICAL HX: Cholelithiasis and cholecystitis POST-OP DX: Same SPECIMEN INFO: Gallbladder GROSS DESCRIPTION: The specimen is received in formalin labeled with the patients name and consists of an intact yet focally opened gallbladder measuring 9.4 x 3.2 cm. The serosa is smooth, pink-jon and focally erythematous. The wall averages 0.1 cm in thickness. The mucosa is light red- jon with diffuse yellow streaking present. The lumen contains markedly viscous dark green bile. Within the bile is a roughened yellow-green stone measuring 2.5 x 1.6 cm. Mail Sorter sections submitted in one cassette. DIAGNOSIS FOR VIKAS BRAND: GALLBLADDER, CHOLECYSTECTOMY: Chronic cholecystitis; cholelithiasis. COLLECTED DATE: 04/03/2017 [facility] REPORT DATE: 04/06/2017 ELECTRONICALLY SIGNED BY: Ravindra Suggs M.D. 04/06/2017 - 10:31:31 SUMAYA
== END 2017-04-04 10:58 | disposition home or self-care (01) ==
LOC: N.EDINP 06:12 → N.ED 06:12 → N.EDINP 10:10 → N.3E 10:41
PROVIDERS: ADMIT Surgery; ATTEND Surgery
PROC: LAPCHOL (2017-04-03 10:25)